=== PATIENT | male | born 1945 | race Hispanic/Latino ===

== ENCOUNTER 2016-11-26 08:29 | Outpatient (CLI) | payer MEDICARE ==
--- NOTE | 2016-11-26 10:19 | Fluoroscopy Report ---
BARIUM SWALLOW: History: Epigastric pain, dysphagia. The patient swallows barium without difficulty demonstrating normal coordination. The cervical and thoracic portions of the esophagus demonstrate normal contours and there is normal peristalsis. There is no evidence of a hiatus hernia and no reflux is demonstrated. IMPRESSION: Normal study.
--- NOTE | 2016-11-26 10:45 | Ultrasound Report ---
RIGHT UPPER QUADRANT ULTRASOUND: HISTORY: Epigastric abdominal pain. Technique: Transabdominal ultrasound imaging with Doppler interrogation. FINDINGS: The gallbladder is sonolucent with no evidence of stones, polyps or wall thickening. The common duct is normal in caliber. Images of the liver parenchyma, pancreas, right kidney and aorta are within normal limits. No perihepatic ascites. IMPRESSION: Unremarkable right upper quadrant ultrasound.
== END 2016-11-26 08:30 | disposition home or self-care (01) ==
LOC: FLUORO 08:29
PROVIDERS: ATTEND Internal Medicine
DX: R10.13 Epigastric pain (principal)
CPT/HCPCS: 74220; 76705

== ENCOUNTER 2016-12-18 08:00 | Inpatient (IN) | payer MEDICARE ==
--- NOTE | 2016-12-10 10:47 | Anesthesia Consultation ---
<MELISSA WASHINGTON - Last Filed: 12/10/16 10:43> Anesthesia Consult and Med Hx Date of service: 12/10/16 (Scheduled for Right Femoral Endarterectomy and LE balloon angioplasty w/ Dr. Chang) - Airway Anesthetic Teeth Evaluation: Crowns, Bridges (permanent implants) ROM Head & Neck: Adequate Mental/Hyoid Distance: Adequate Mallampati Class: Class II Intubation Access Assessment: Probably Good - Pulmonary Exam CTA: Yes - Cardiac Exam Cardiac Exam: RRR Anesthetic Concerns: Grade II/ RODOLFO heard best at LUSB - Pre-Operative Health Status ASA Pre-Surgery Classification: ASA2 Proposed Anesthetic Plan: General - Pre-Anesthesia Comment Pre-Anesthesia Comments: No previous anesthesia complications. - Pulmonary Hx Smoking: Yes (1 PPD, Quit 24 yrs ago) Hx Asthma: No - Cardiovascular System Hx Hypertension: Yes (15-20 yrs) Hx Coronary Artery Disease: No Hx Heart Attack/AMI: No Hx Heart Murmur: Yes Hx Peripheral Vascular Disease: Yes (8YRS; no stents) - Central Nervous System Hx Seizures: No CVA: No - Gastrointestinal Hx Gastroesophageal Reflux Disease: No - Endocrine Hx Renal Disease: No Hx Non-Insulin Dependent Diabetes: No Hx Thyroid Disease: No - Other Systems Hx Alcohol Use: Yes (BEER DAILY) Hx Cancer: Yes (Prostate CA s/p radical prostatectomy) Hx Obesity: No - Additional Comments Anesthesia Medical History Comments: Pt denies chest pain or SOB. Reports heart murmur since childhood. <PRECIOUS ANSARI - Last Filed: 12/18/16 07:56> Anesthesia Consult and Med Hx - Pre-Anesthesia Comment Pre-Anesthesia Comments: Cardiac clearance on chart
[2016-12-10 10:48] LABS: Basophils % (Auto) 0.7 % (0.0-1.8); Hematocrit 45.8 % (35.5-45.6); Hemoglobin 14.9 gm/dl (11.8-15.2); Mean Corpuscular HGB Conc 33 % (32-34); Mean Corpuscular Hemoglobin 30 pg (28-32); Mean Corpuscular Volume 91 fl (84-94); Platelet Count 194 K/mm3 (140-440); Red Blood Count 5.05 M/mm3 (3.65-5.03); Red Cell Distribution Width 14.7 % (13.2-15.2); White Blood Count 5.9 K/mm3 (4.5-11.0)
[2016-12-10 10:56] LABS: INR 0.96 (0.87-1.13)
[2016-12-10 10:57] LABS: Anion Gap 19 mmol/L; Blood Urea Nitrogen 20 mg/dL (9-20); Carbon Dioxide 24 mmol/L (22-30); Chloride 99.8 mmol/L (98-107); Glucose 171 mg/dL (75-100); Sodium 139 mmol/L (137-145)
--- NOTE | 2016-12-16 17:58 | Admit Criteria Form ---
Admission Criteria Documentation: VASCULAR DISEASE GRG Clinical Indications for Admission to Inpatient Care (Place 'X' for any and all applicable criteria): Hospital admission is needed for appropriate care of the patient because of ANY ONE of the following (1)(2)(3)(4): [ ]I. Life-threatening or limb-threatening skin ulcer as indicated by ANY ONE of the following(5): [ ]a) Surrounding cellulitis unresponsive to outpatient treatment [ ]b) Wet gangrene [ ]c) Lymphangitis [ ]d) Bacteremia [ ]II. Gangrene requiring intensity and frequency of care not manageable to outpatient, emergency, or observation level of care(5) [ ]III. Severe pain requiring acute inpatient management [ ]IV. Interventional revascularization (eg, surgery, thrombolysis) needed (eg , critical limb ischemia)(21) [ ]V. Urgent inpatient IV anticoagulation needed due to ALL of the following: [ ]a) Temporary subtherapeutic anticoagulation unacceptable because of high risk of short-term venous or arterial thromboembolism due to ANY ONE of the following(7)(8)(9): [ ]i) Venous thromboembolism within the past 12 months [ ]ii) Underlying malignancy [ ]iii) Patient with mechanical cardiac valve(10)(11) [ ]iv) Underlying hypercoagulable state (eg, protein C or protein S deficiency, antithrombin deficiency, antiphospholipid antibodies) [ ]v) Patient at high risk of thromboembolism (eg, status post orthopedic surgery, history of recurrent venous thromboembolism) [ ]vi) Atrial fibrillation with rheumatic valvular heart disease [ ]vii) Atrial fibrillation with 3 or MORE of the following : [ ]1) Congestive heart failure [ ]2) Hypertension [ ]3) Age 65 years or older [ ]4) Diabetes mellitus [ ]5) History of thromboembolism (eg, stroke, TIA , or systemic embolization) more than 3 months ago [ ]6) Female gender [ ]b) Contraindications to outpatient use of "bridging" agent or alternative oral anticoagulant as indicated by ALL of the following: [ ]i) Contraindication to outpatient use of low-molecular -weight heparin as "bridging" agent as indicated by ANY ONE of the following(8) : [ ]1) Documented current or history of heparin- induced thrombocytopenia(12) [ ]2) Severe thrombocytopenia (eg, platelet count less than 50,000/mm3 (50 x109/L)) [ ]3) Documented allergy to heparin, low- molecular-weight heparin, or pork products [ ]4) Renal failure (creatinine clearance < 30 mL /min/1.73m2 (0.50 mL/sec/1.73m2) or on dialysis) [ ]5) Inability to manage self-injection (eg, by patient, caregiver, or visiting nurse) [ ]ii) Contraindication to outpatient use of fondaparinux as "bridging" agent as indicated by ANY ONE of the following(13)(14)(15)(16): [ ]1) Severe thrombocytopenia (eg, platelet count less than 50,000/mm3 (50 x109/L)) [ ]2) Hypersensitivity to fondaparinux, related drugs, or product components [ ]3) Renal failure (creatinine clearance less than 30 mL/min/1.73m2 (0.50 mL/sec/1.73m2) or on dialysis) [ ]4) Inability to manage self-injection (eg, by patient, caregiver, or visiting nurse) [ ]iii) Oral direct thrombin inhibitor (eg, dabigatran) or oral coagulation factor Xa inhibitor (eg, rivaroxaban) not appropriate as oral anticoagulation (eg, indication not appropriate) or contraindicated (eg, hypersensitivity, renal failure)(13)(16)(17)(18)(19)(20) [ ]. Suspected severe acute ischemia due to peripheral vascular disease as indicated by ANY ONE of the following(5)(6): [ ]a) Tissue necrosis [ ]b) Severe pain [ ]c) Acute pulselessness [ ]d) Other evidence of acute severe ischemia (eg, lactic acidosis , motor dysfunction) [ ]VII. Acute or newly diagnosed major vessel (eg, aorta) dissection, rupture, or leakage(5)(6)(22)(23) [ X]VIII.Vascular Disease and ALL of the following: [ X]a) Symptom or finding for which emergency and observation care have failed or are not considered appropriate (Use General Criteria: Observation Care as appropriate) [X ]b) Presence of ANY ONE of the following: [ X]i) A General Admission Criteria [ ]ii) A Pediatric General Admission Criteria The original [facility] content created by [facility] [employer] has been revised. The portions of the content which have been revised are identified through the use of italic text or in bold, and [facility] has neither reviewed nor approved the modified material. All other unmodified content is copyright [facility]. Please see references footnoted in the original [facility] edition 2016
--- NOTE | 2016-12-17 13:14 | History and Physical Report ---
History of Present Illness Date of examination: 12/17/16 Chief complaint: severe bilateral disabling claudication History of present illness: this is a 71-year-old gentleman with a long-standing bilateral claudication the right worse than left. Patient underwent a trial of exercise therapy. After it failed to improve his symptoms he had a trial of cilostazol that also did not improve his symptoms. He continued to complain of his claudication and it became severe. He underwent a diagnostic angiogram that showed a complete occlusion of the right common femoral artery and near complete occlusion of the left common femoral artery and severe bilateral SFA disease. It was decided that the best treatment would be a hybrid treatment was femoral endarterectomy and atherectomy of the SFA.. Past History Past Medical History: hyperthyroidism, hyperlipidemia (Colonoscopy), PVD (with claudication) Past Surgical History: TURP Family history: no significant family history Medications and Allergies Allergies Allergy/AdvReac Type Severity Reaction Status Date / Time LAUGHING GAS AdvReac MAKES PT Uncoded 11/26/16 08:30 CRAZY Home Medications Medication Instructions Recorded Confirmed Last Taken Type Allopurinol [Allopurinol] 300 mg PO QDAY 12/04/16 12/04/16 Unknown History AtorvaSTATin [Lipitor] 40 mg PO QDAY 12/04/16 12/04/16 Unknown History Cholestyramine (with Sugar) 4 gm PO QD 12/04/16 12/04/16 Unknown History [Questran] Cilostazol [Pletal] 100 mg PO QDAY 12/04/16 12/04/16 Unknown History Ezetimibe [Zetia] 10 mg PO QDAY 12/04/16 12/04/16 Unknown History Lisinopril/Hydrochlorothiazide 1 tab PO QDAY 12/04/16 12/04/16 Unknown History [Lisinopril-Hctz 20-12.5 mg Tab] Potassium Chloride [Klor-Con 8] 8 meq PO QDAY 12/04/16 12/04/16 Unknown History Active Meds: Active Medications Enoxaparin Sodium (Lovenox) 40 mg SUB-Q QDAY VALARIE Famotidine (Pepcid) 20 mg PO PREOP NR Stop: 12/18/16 23:59 Lactated Ringer's (Lactated Ringers) 1,000 mls @ 100 mls/hr IV DIRECT VALARIE Cefazolin Sodium (Ancef/Sterile Water 2 Gm/20 Ml) 2 gm in 20 mls @ 80 mls/hr IV PREOP NR PRN Reason: Protocol Stop: 12/18/16 23:59 Midazolam HCl (Versed) 1 mg IV PREOP VALARIE Stop: 12/18/16 23:59 Review of Systems Constitutional: no weight loss Ears, nose, mouth and throat: deferred Cardiovascular: no chest pain Respiratory: no cough Gastrointestinal: no abdominal pain Genitourinary Male: no dysuria Musculoskeletal: no neck pain Integumentary: deferred Neurological: no weakness, no parathesias, no numbness Hematologic/Lymphatic: no easy bruising Exam - Constitutional Vitals: Temp Pulse Resp BP Pulse Ox 98.7 F 82 18 120/68 12/10/16 10:15 12/10/16 10:15 12/10/16 10:15 12/10/16 10:15 General appearance: Present: no acute distress - EENT Eyes: Present: PERRL ENT: hearing intact - Neck Neck: Absent: carotid bruits - Respiratory Respiratory effort: normal Respiratory: bilateral: CTA - Cardiovascular Rhythm: regular - Extremities Extremity abnormal: other (Absent right femoral pulse, weekleft femoral pulse, pop and pedal pulses non palp) - Abdominal General gastrointestinal: Present: soft, non-tender Male genitourinary: Present: deferred - Rectal Rectal Exam: deferred - Integumentary Integumentary: Present: clear, warm, dry - Musculoskeletal Musculoskeletal: strength equal bilaterally Results - Labs CBC & Chem 7: 12/10/16 10:29 12/10/16 10:29 Assessment and Plan Severe disabling bilateral claudication right worse than left. Failure of exercise and medical therapy to improve the symptoms. Complete occlusion of the right common femoral artery with a severe SFA disease. Plan: Patient will undergo a right common femoral endarterectomy with a endovascular treatment of the SFA with CSI atherectomy.
[2016-12-18] MEDS: LACTATED RINGERS 1,000 ML IV SCH (06:55)
--- NOTE | 2016-12-18 07:57 | Anesthesia Day of Surgery ---
Anesthesia Day of Surgery - Day of Surgery Patient Examined: Yes Patient H&P Reviewed: Yes Patient is NPO: Yes Beta Blockers: No Cardiac Clearance: Yes
[~2016-12-18 08:00] MED LIST: ANCEF/STERILE WATER 2 GM/20 ML 2 GM/20 ML SYRINGE IV NR; DILAUDID IV PRN; DILAUDID ONE; DIPRIVAN 10 MG/ML IV ONE; NACL 0.9% ONE; PEPCID PO NR; VERSED IV SCH; XYLOCAINE MPF 2% ONE; ZOFRAN IV PRN
[2016-12-18] MEDS ORDERED: ePHEDrine SULFATE ONE (08:07)
[2016-12-18] MEDS ORDERED: NACL 0.9% 1000 ML 1,000 ML ONE ×2 (08:24→11:15)
[2016-12-18] MEDS ORDERED: DECADRON ONE (08:36)
[2016-12-18] MEDS ORDERED: NACL 0.9% 1000 ML 2,000 ML ONE (08:40)
[2016-12-18] MEDS ORDERED: NACL 0.9% IR ONE (09:04)
[2016-12-18] MEDS ORDERED: HEPARIN 10,000 UNITS/10 ML 4,000 UNIT in NACL 0.9% 1000 ML 1,000 ML IR ONE (09:05)
[2016-12-18] MEDS ORDERED: NEO SYNEPHRINE ONE (09:31)
[2016-12-18] MEDS ORDERED: NITROGLYCERIN ONE (10:34)
[2016-12-18] MEDS ORDERED: OMNIPAQUE (240mg) IV ONE ×2 (10:52)
[2016-12-18] MEDS ORDERED: NACL 0.9% 1000 ML IV ONE (10:55)
[2016-12-18] MEDS ORDERED: CALAN IV ONE (11:00)
[2016-12-18] MEDS ORDERED: NITROGLYCERIN SYRINGE IV ONE (11:00)
[2016-12-18] MEDS ORDERED: TRIDIL DRIP 50MG/250ML 50 MG/250 ML BOTTLE ONE (11:43)
[2016-12-18] MEDS ORDERED: NACL 0.9% 500 ML IV ONE (12:17)
[2016-12-18] MEDS ORDERED: ANCEF ONE (12:29)
[2016-12-18] MEDS ORDERED: HEPARIN 10,000 UNITS/10 ML ONE (12:34)
[2016-12-18] MEDS ORDERED: ZOFRAN ONE (13:15)
[2016-12-18] MEDS ORDERED: MORPHINE IV PRN ×2 (14:08)
[2016-12-18] MEDS ORDERED: NARCAN 0.4 MG/1 ML IV PRN (14:08)
[2016-12-18] MEDS ORDERED: NORCO 5/325 PO PRN (14:08)
[2016-12-18] MEDS ORDERED: ZOFRAN IV PRN (14:08)
[2016-12-18 14:25] LABS: Hematocrit 43.6 % (35.5-45.6); Mean Corpuscular HGB Conc 32 % (32-34); Mean Corpuscular Hemoglobin 29 pg (28-32); Mean Corpuscular Volume 91 fl (84-94); Platelet Count 185 K/mm3 (140-440); Red Blood Count 4.81 M/mm3 (3.65-5.03); Red Cell Distribution Width 15.1 % (13.2-15.2); White Blood Count 11.5 K/mm3 (4.5-11.0)
[2016-12-18] MEDS ORDERED: PLAVIX PO ONE (14:30)
[2016-12-18 14:33] LABS: INR 1.11 (0.87-1.13)
[2016-12-18 14:43] LABS: Anion Gap 22 mmol/L; BUN/Creatinine Ratio 31.11; Blood Urea Nitrogen 28 mg/dL (9-20); Calcium 7.4 mg/dL (8.4-10.2); Carbon Dioxide 18 mmol/L (22-30); Chloride 105.6 mmol/L (98-107); Glucose 203 mg/dL (75-100); Potassium 4.2 mmol/L (3.6-5.0); Sodium 141 mmol/L (137-145)
--- NOTE | 2016-12-18 14:47 | Operative Report ---
Operative Report Operative Report: Date of procedure: 12/18/2016 Pre-operative diagnosis: Peripheral vascular disease with disabling claudication. Failure of medical management to improve symptoms. Post-operative diagnosis: Same Procedure name(s): 1.Right common femoral artery endarterectomy with bovine pericardial patch angioplasty. 2. Open access of right common femoral artery. Right leg endarterectomy. 3. Selective cannulation of dorsalis pedis artery on the right. 4. Right superficial femoral artery atherectomy using 1.5 solid diamondback crown. 5. Balloon angioplasty of the right upper fissure femoral artery using a 6 x 200 balloon. 6. Balloon angioplasty of the right superficial femoral artery using 6 x 1 20 drug-eluting balloon Lutonix. 7. Stenting of the right superficial femoral artery using 6 x 120 bare-metal stent. Surgeon: Niles Chang MD, RPVI [place] Supervisor: Kiya Sims DO. Anesthesia: Gen. Findings 1. Complete occlusion of the right common femoral artery. 2. High-grade diffuse right SFA stenosis. 3. Severe calcification in the common and superficial femoral arteries. 4. Preserved 3 vessel runoff. 5. Complete resolution of all stenosis is and occlusions after the procedure. 6. Well vascularized right foot with palpable dorsalis pedis and posterior tibial pulses Specimens: Right femoral plaque EBL: 300 cc IV fluids: 2100 mL Urine output: 350 mL Disposition: The recovery Indications: Disabling life limiting claudication unresponsive to exercise and pharmacological therapy. Procedure Patient was brought to the operating room and laid on table in supine position. After general LMA anesthesia was achieved, patient was prepped and draped in usual sterile fashion. Right groin was infiltrated with quarter percent Marcaine. A longitudinal incision in the right groin was made using #15 blade. Subcutaneous tissue was divided with Bovie electrocautery. The common femoral artery was located and dissected free the dissection continued cephalad to the external iliac artery. External iliac artery was found to be soft and it was encircled with a vessel loop. The dissection continued coudad, and superficial femoral and deep femoral arteries were dissected free and controlled with vessel loops. Patient received 6500 units of heparin. After 3 minutes all vessels were controlled with vascular clamps. Arteriotomy was made using #11 blade on common femoral artery and extended proximally and distally with Pott scissors. Large amount of occlusive calcified plaque was seen and subsequently removed using a [place] elevator. The endarterectomy site was irrigated with heparinized saline the loose pieces were picked off with pickups. The endarterectomy was closed using bovine pericardial patch and running 5-0 Prolene stitch. Prior to completion of the patch back bleeding maneuvers were performed and excellent forward and backward bleeding was seen from all the vessels. The patch was completed. The clamps were released. Excellent flow was noted in all the vessels with palpable pulses. Hemostasis was excellent. Patch was punctured using the micropuncture needle in the antegrade fashion. The micropuncture wire was advanced into the SFA. The micropuncture introducer sheath was placed over the wire. The wire was exchanged to a J-tip wire. The 6 Khmer sheath was placed into the common femoral artery over the wire. The wire was exchanged to a Glidewire. The Glidewire was advanced down to the popliteal artery. The vertebral catheter was advanced over the wire and placed in the popliteal artery. The Viper wire was then advanced with the tip of the wire going into the peroneal artery. The angiogram was performed and the SFA lesions were marked. The 1.5 solid crowned diamondback was used to perform atherectomy first proximally then distally. It was run starting was low and then medium then high revolution. After atherectomy of the SFA was balloon angioplastied with a 6 x 200 balloon. Follow-up angiogram with significant improvement in SFA lumen however the area of heavy calcifications still showed stenosis. That area was treated using drug -eluting balloon with some improvement however not complete. It was then stented using a 6 x 120 stent and postdilated using 6 x 120 balloon. Postprocedure angiogram revealed significant improvement in the flow in the SFA but distally there was some sluggish flow. The 200 g of nitroglycerin were injected through the sheath. But the distal flow was still not excellent. The catheter then was advanced to the level of the popliteal artery and the sheath was pulled back because we thought may been occlusive. Some more nitroglycerin was injected down into anterior tibial artery and all way down to the dorsalis pedis artery. The catheter was advanced down to the distal anterior tibial artery and the contrast was injected at that point there was a brisk flow into the foot with intact plantar arch reflux of the contrast into posterior tibial artery and the brisk runoff into the foot. At that point flow appeared excellent and the catheter was withdrawn. The sheath was removed and the patch closed using 6-0 Prolene stitch The pressure was allowed to rise to check for bleeding. No bleeding was noted. The wound was further infiltrated with more Marcaine for postoperative pain The wound was closed in layers using 2-0 Vicryl followed by 3-0 Vicryl followed by skin andrei. Patient tolerated procedure well and was extubated and transferred to the recovery room. At the completion of the operation he had palpable posterior tibial and dorsalis pedis pulse At the end of the case all instrument sponge and needle counts were correct.
--- NOTE | 2016-12-18 15:03 | Post Anesthesia Evaluation ---
- Post Anesthesia Evaluation Patient Participated: Yes Airway Patent: Yes Stable Respiratory Function: Yes Temp > 96.8F: Yes Pain Manageable: Yes Adequeate Hydration: Yes Anesthesia Complications: No Block Receding Appropriately: Not Applicable
[2016-12-18 15:16] LABS: Basophils % (Manual) 0 % (0.0-1.8); Blastocytes % (Manual) 0 %; Eosinophils % (Manual) 0 % (0.0-4.3)
[2016-12-18 15:17] LABS: Diff Status Complete; Ovalocytes Few; Platelet Estimate Appears Decreased
[2016-12-18] MEDS: QUESTRAN PO SCH (21:15)
[2016-12-18] MEDS ORDERED: ZETIA PO SCH (22:00)
[2016-12-19] MEDS: LACTATED RINGERS 1,000 ML IV SCH (00:34)
[2016-12-19 04:29] LABS: Hematocrit 38.8 % (35.5-45.6); Hemoglobin 12.8 gm/dl (11.8-15.2)
[2016-12-19 04:46] LABS: BUN/Creatinine Ratio 23.75; Blood Urea Nitrogen 19 mg/dL (9-20); Carbon Dioxide 25 mmol/L (22-30); Chloride 102.8 mmol/L (98-107); Glucose 131 mg/dL (75-100); Potassium 4.2 mmol/L (3.6-5.0); Sodium 137 mmol/L (137-145)
[2016-12-19 04:50] LABS: Anion Gap 13 mmol/L
[2016-12-19] MEDS ORDERED: LOVENOX SUB-Q SCH (08:00)
[2016-12-19] MEDS: QUESTRAN PO SCH (09:27)
[2016-12-19] MEDS ORDERED: NON-FORMULARY (Lisinopril/Hydrochlorothiazide [Lisinopril-Hctz 20-12.5 Mg Tab] 1 TAB) PO SCH (10:00)
[2016-12-19] MEDS ORDERED: PLAVIX PO SCH (10:00)
[2016-12-19] MEDS ORDERED: ZYLOPRIM PO SCH (10:00)
[2016-12-19] MEDS ORDERED: HCTZ PO SCH (10:00)
[2016-12-19] MEDS ORDERED: ZESTRIL PO SCH (10:00)
[2016-12-19] MEDS ORDERED: KLOR-CON 8 PO SCH (10:00)
--- NOTE | 2016-12-19 11:27 | Consultation ---
History of Present Illness Consult date: 12/19/16 Requesting physician: CHRISSY PEREZ Reason for consult: other (S/P Carotid End Artery ) History of present illness: PULMONARY/CCM CONSULT NOTE (Full dictation # [id number]) Please see dictated notes for full details Past History Past Medical History: hyperthyroidism, hyperlipidemia (Colonoscopy), PVD (with claudication) Past Surgical History: TURP Family history: no significant family history Medications and Allergies Allergies Allergy/AdvReac Type Severity Reaction Status Date / Time LAUGHING GAS AdvReac MAKES PT Uncoded 11/26/16 08:30 CRAZY Home Medications Medication Instructions Recorded Confirmed Last Taken Type Allopurinol 300 mg PO QDAY 12/04/16 12/04/16 12/17/16 History AtorvaSTATin [Lipitor] 40 mg PO QDAY 12/04/16 12/04/16 12/17/16 History Cholestyramine (with Sugar) 4 gm PO QD 12/04/16 12/04/16 12/17/16 History [Questran] Ezetimibe [Zetia] 10 mg PO QDAY 12/04/16 12/04/16 12/17/16 History Lisinopril/Hydrochlorothiazide 1 tab PO QDAY 12/04/16 12/18/16 12/18/16 04:30 History [Lisinopril-Hctz 20-12.5 mg Tab] Potassium Chloride [Klor-Con 8] 8 meq PO QDAY 12/04/16 12/04/16 12/17/16 History oxyCODONE /ACETAMINOPHEN [Percocet 1 - 2 tab PO Q4HR #40 tab 12/18/16 Unknown Rx 5/325] Clopidogrel [Plavix] 75 mg PO QDAY #30 tablet 12/19/16 Unknown Rx Active Meds: Active Medications Acetaminophen/Hydrocodone Bitart ([place] 5/325) 2 each PO Q6H PRN PRN Reason: Pain, Moderate (4-6) Allopurinol (Zyloprim) 300 mg PO QDAY [facility] Last Admin: 12/19/16 09:27 Dose: 300 mg Atorvastatin Calcium (Lipitor) 40 mg PO QHS [facility] Last Admin: 12/18/16 22:37 Dose: 40 mg Cholestyramine Resin (Questran) 4 gm PO DAILY [facility] Last Admin: 12/19/16 09:27 Dose: 4 gm Clopidogrel Bisulfate (Plavix) 75 mg PO QDAY [facility] Last Admin: 12/19/16 09:27 Dose: 75 mg Ezetimibe (Zetia) 10 mg PO QHS [facility] Last Admin: 12/18/16 22:37 Dose: 10 mg Enoxaparin Sodium (Lovenox) 40 mg SUB-Q QDAY [facility] Last Admin: 12/19/16 09:28 Dose: 40 mg Hydrochlorothiazide (Hctz) 12.5 mg PO QDAY [facility] Last Admin: 12/19/16 09:27 Dose: 12.5 mg Lactated Ringer's (Lactated Ringers) 1,000 mls @ 100 mls/hr IV DIRECT [facility] Last Admin: 12/19/16 00:34 Dose: 100 mls/hr Lisinopril (Zestril) 20 mg PO QDAY [facility] Last Admin: 12/19/16 09:27 Dose: 20 mg Morphine Sulfate (Morphine) 2 mg IV Q4H PRN PRN Reason: Pain, Moderate (4-6) Morphine Sulfate (Morphine) 4 mg IV Q4H PRN PRN Reason: Pain , Severe (7-10) Naloxone HCl (Narcan 0.4 Mg/1 Ml) 0.1 mg IV Q2MIN PRN PRN Reason: Res Rate </= 8 or 02 SAT < 92% Ondansetron HCl (Zofran) 4 mg IV Q8H PRN PRN Reason: Nausea And Vomiting Potassium Chloride (Klor-Con 8) 8 meq PO QDAY [facility] Last Admin: 12/19/16 10:59 Dose: 8 meq Physical Examination Vital signs: Vital Signs Temp Pulse Resp BP 98.7 F 82 18 120/68 12/10/16 10:15 12/10/16 10:15 12/10/16 10:15 12/10/16 10:15 Results - Laboratory Findings CBC and BMP: 12/19/16 03:53 12/19/16 03:53 PT/INR, D-dimer PT 14.2 Sec. (12.2-14.9) 12/18/16 14:13 INR 1.11 (0.87-1.13) 12/18/16 14:13 Abnormal lab findings: Abnormal Labs 12/10/16 12/10/16 12/18/16 10:29 10:29 10:05 WBC RBC 5.05 H Hct 45.8 H Lymph % (Auto) 11.6 L Lymph # 0.7 L Seg Neutrophils % 78.7 H Seg Neuts % (Manual) Lymphocytes % (Manual) Seg Neutrophils # Man Lymphocytes # (Manual) Activated Clotting Time 193 H Carbon Dioxide BUN Glucose 171 H Calcium 12/18/16 12/18/16 12/19/16 14:13 14:13 03:53 WBC 11.5 H RBC Hct Lymph % (Auto) Lymph # Seg Neutrophils % Seg Neuts % (Manual) 87.0 H Lymphocytes % (Manual) 3.0 L Seg Neutrophils # Man 10.0 H Lymphocytes # (Manual) 0.3 L Activated Clotting Time Carbon Dioxide 18 L BUN 28 H Glucose 203 H 131 H Calcium 7.4 L 8.0 L
[2016-12-19 12:04] VITALS: BP 140/63
--- NOTE | 2016-12-19 12:42 | Discharge Summary ---
Providers - Providers Date of Admission: 12/18/16 08:58 Date of discharge: 12/19/16 Attending physician: NILES CHANG 12/18/16 14:08 Consult to Physician [CONS] Routine Consulting Provider: YAW TYSON Reason For Exam: Icu admission Place consult to:: already notify per errol baker pt to floor @[phone] Notified:: yes Phone number called:: [phone] Was contact made?: Yes If yes, spoke with:: text Time called:: 21:46 Primary care physician: YONY CHE Hospitalization Reason for admission: Peripheral vascular disease with disabling claudication Condition: Good Procedures: Operative Report Operative Report: Date of procedure: 12/18/2016 Pre-operative diagnosis: Peripheral vascular disease with disabling claudication. Failure of medical management to improve symptoms. Post-operative diagnosis: Same Procedure name(s): 1.Right common femoral artery endarterectomy with bovine pericardial patch angioplasty. 2. Open access of right common femoral artery. Right leg endarterectomy. 3. Selective cannulation of dorsalis pedis artery on the right. 4. Right superficial femoral artery atherectomy using 1.5 solid diamondback crown. 5. Balloon angioplasty of the right upper fissure femoral artery using a 6 x 200 balloon. 6. Balloon angioplasty of the right superficial femoral artery using 6 x 1 20 drug-eluting balloon Lutonix. 7. Stenting of the right superficial femoral artery using 6 x 120 bare-metal stent. Surgeon: Niles Chang MD, RPVI Manager Alliance: Kiya Sims DO. Anesthesia: Gen. Findings 1. Complete occlusion of the right common femoral artery. 2. High-grade diffuse right SFA stenosis. 3. Severe calcification in the common and superficial femoral arteries. 4. Preserved 3 vessel runoff. 5. Complete resolution of all stenosis is and occlusions after the procedure. 6. Well vascularized right foot with palpable dorsalis pedis and posterior tibial pulses Specimens: Right femoral plaque EBL: 300 cc IV fluids: 2100 mL Urine output: 350 mL Disposition: The recovery Indications: Disabling life limiting claudication unresponsive to exercise and pharmacological therapy. Hospital course: Pt was admitted in preparation for the above stated surgery which was performed without complication. Post-operatively the pt was transferred to the recover room and subsequently the ICU. Pt did well. His activity levels were increased and tolerated. By POD 1 he appeared to be doing well and able to be d/c'd home. D/c instructions were given to the pt at the bedside. He should f/u in 2 wks. Rx for Percocet and Plavix given. Disposition: DISCHARGED TO HOME OR SELFCARE - Discharge Diagnoses (1) Atherosclerosis of [place] arteries of extremity with intermittent claudication Status: Acute Qualifiers: Peripheral atherosclerosis location: P Laterality: L Core Measure Documentation - Palliative Care Palliative Care/ Comfort Measures: Not Applicable - Core Measures Any of the following diagnoses?: none Exam - Constitutional Vitals: Temp Pulse Resp BP Pulse Ox 98.1 F 81 22 140/63 96 12/19/16 08:00 12/19/16 12:00 12/19/16 12:00 12/19/16 12:00 12/19/16 12:00 General appearance: Present: no acute distress - EENT Eyes: Present: EOM intact ENT: hearing intact - Neck Neck: Present: supple - Respiratory Respiratory effort: normal - Extremities Extremities: no ischemia, pulses intact (Palp PT on the right. Bandages on the right groin with scant dry staining.), normal temperature - Psychiatric Psychiatric: appropriate mood/affect, intact judgment & insight, cooperative - Neurologic Neurologic: no focal deficits Plan Activity: advance as tolerated Weight Bearing Status: Weight Bear as Tolerated Diet: regular Wound: change dressing (starting after 48hrs) Follow up with: NILES CHANG MD [Staff Physician] - 14 Days Prescriptions: Clopidogrel [Plavix] 75 mg PO QDAY #30 tablet oxyCODONE /ACETAMINOPHEN [Percocet 5/325] 1 - 2 tab PO Q4HR #40 tab
--- NOTE | 2016-12-20 01:41 | Consultation ---
CONSULTING PHYSICIAN: Niles Chang MD REASON FOR CONSULTATION: Status post revascularization procedure, femoral endarterectomy and atherectomy of the SFA, and need for ICU observation postop. CHIEF COMPLAINT AND HISTORY OF PRESENT ILLNESS: The patient is a 71-year-old male with past medical history significant amongst other things for peripheral vascular disease that progressed to bilateral intermittent claudication, right worse than left. He underwent a trial of exercise therapy symptoms, he tried Celestone. It did not improve his symptoms, they actually became worse. Diagnostic angiogram showed complete occlusion of the right common femoral artery and near complete occlusion of the left common femoral artery with severe bilateral SFA disease. Hence, the above-mentioned treatment was offered. He was brought into the OR and was relatively uneventful surgery as far as I can tell and as I was told postop request was made for ICU observation overnight that was granted. When I stopped by to see him, he was up in the chair, had walked around circumferentially in the Intensive Care Unit units once or twice. Denied any chest pains. Denied any new symptoms. When asked about his sleep patten secondary to his being obese, mentioned that he does snore, did not really mention witnessed apneas except if he drinks too much wine she mentioned. With regards to tobacco, he does have a 10+ pack year remote tobacco smoking history. That really is as much of the history of presentation as I have. PAST MEDICAL HISTORY: Hypothyroidism, hyperlipidemia, peripheral vascular disease. PAST SURGICAL HISTORY: He has had a transurethral resection of the prostate in the past. MEDICATIONS: He was on at the time I stopped by to see him, according to the medication administration record included the following: Zyloprim 300 mg p.o. daily, Lipitor 40 mg p.o. at bedtime, Questran 4 grams p.o. daily, Plavix 75 mg p.o. daily, Lovenox 40 mg subcutaneous daily, Zetia 10 mg p.o. at bedtime, hydrochlorothiazide 12.5 mg p.o. daily, lactated Ringer's was going at 100 mL an hour, lisinopril 20 mg p.o. daily, morphine 2 mg IV q.4h. p.r.n. moderate pain and 4 mg IV q.4h. p.r.n. severe pain, Zofran 4 mg IV q.8h. p.r.n. nausea and vomiting, and potassium chloride 8 mEq p.o. daily as well as p.r.n. Narcan. ALLERGIES: Laughing gas. Nature of this allergy is unknown. DIET: Obese gentleman. Denies significant weight loss or gain in the preceding few weeks to months. FAMILY AND SOCIAL HISTORY: Lives in the community. He is . A 10+ pack year remote tobacco smoking history. No current alcohol, tobacco, or illicit drug use or abuse. REVIEW OF SYSTEMS: No loss of consciousness. No new onset seizures. No new onset focal weakness. No gross hematochezia or melena. No gross hematuria or dysuria. No hematemesis. No hemoptysis. No palpitations. He does have intermittent claudication bilaterally. Complete review of systems obtained. Pertinent positives and/or negatives as in body of history above, otherwise they are noncontributory. PHYSICAL EXAMINATION: VITAL SIGNS: At presentation, he was afebrile, temperature 98.6, pulse was 70, respiratory rate 14, blood pressure 133/68, Oxygen sats 96%, inspired oxygen concentration was not recorded. HEAD, EYES, EARS, NOSE, AND THROAT: Pupils are equal, round, about 4 mm, reactive to light. Extraocular muscle movements are intact. Oropharynx is a Mallampati #4 oropharynx. No significant posterior oropharyngeal erythema. Grossly, no palpable lymph nodes in the supraclavicular or submandibular lymph node chains. HEART: ____ he has a systolic murmur and with some referral into carotids, but regular rate and rhythm at the time of my evaluation. LUNGS: Auscultation of both lung [place] unremarkable. Lungs are clear bilaterally. ABDOMEN: Soft, full, bowel sounds are positive, nontender. EXTREMITIES: With trace pedal edema on the right. No pedal edema on the left and no significant digital clubbing or cyanosis. NEUROLOGIC: The exam was grossly nonfocal. LABORATORY DATA: From my review are as follows: White cell count 11,500, hemoglobin 14.0, hematocrit 43.6, platelets 185. INR was 1.11. Serum sodium 141, potassium 4.2, chloride 106, bicarbonate was 18 that is up to 25 today, BUN was 28 with a creatinine of 0.9, BUN is now 19, and glucose was 203. No microbiology data for review. No radiographic studies for review. ASSESSMENT AND PLAN: We have a 71-year-old gentleman with peripheral vascular disease, status post revascularization procedure, appears to have done very well. I have stressed to him the importance of treating any sleep apnea if he does have it in light of his comorbidities for the secondary benefits and I have asked him to bring up the matter with his primary care physician at the visit. Otherwise, he will be placed on GI prophylaxis. He is on DVT prophylaxis. Flu and pneumonia vaccination will be per protocol and he is doing better, hopefully can be transferred out of the Intensive Care Unit today. Thank you very much for the consult Dr. Chang. We will follow along and make further recommendations as picture progresses/becomes clearer. JOB# [id number] KEILA/SUDHAKAR
== END 2016-12-19 13:41 | disposition home or self-care (01) | DRG 254 ==
LOC: 3A 08:58 → CC1 20:57
PROVIDERS: ADMIT Surgery Vascular Surgery; ATTEND Surgery Vascular Surgery
PROC: 04UK0KZ Supplement Right Femoral Artery with Nonautologous Tissue Substitute, Open Approach (ICD-10-PCS; principal; 2016-12-18)
PROC: 04CK0ZZ Extirpation of Matter from Right Femoral Artery, Open Approach (ICD-10-PCS; 2016-12-18)
PROC: 047 Lower Arteries, Dilation (ICD-10-PCS; 2016-12-18)
PROC: 047 Lower Arteries, Dilation (ICD-10-PCS; 2016-12-18)
DX: I70.211 Atherosclerosis of native arteries of extremities with intermittent claudication, right leg (principal); E03.9 Hypothyroidism, unspecified; E78.5 Hyperlipidemia, unspecified; Z90.79 Acquired absence of other genital organ(s); Z79.899 Other long term (current) drug therapy; Z91.048 Other nonmedicinal substance allergy status
CPT/HCPCS: 36415; 36620; 80048; 85007; 85014; 85018; 85025; 85347; 85610; 86850; 86900; 86901; 88304; 88311; 94760; A9270-GY; C1724; C1725; C1768; C1769; C1876; C1894; C2623; J0690; J1100; J1170; J1644; J1650; J2250; J2370; J2405; J2704; J7030; J7040; J7120; Q9966